=== PATIENT | male | born 1945 | race Caucasian/White ===

== ENCOUNTER 2019-05-05 07:11 | Emergency (ER) | payer OTHER, SELFPAY ==
[2019-05-05 07:21] VITALS: BP 151/75; PULSE 64; RESP 16; TEMP 37.2; O2SAT 99
--- NOTE | 2019-05-05 07:36 | ED_ITS ---
HPI - Skin/Abscess/Foreign Bdy General Chief complaint: Skin/Abscess/Foreign Body Stated complaint: bee sting on nose,not getting better Time Seen by Provider: 05/05/19 07:15 Source: patient Mode of arrival: ambulatory Limitations: no limitations History of Present Illness HPI narrative: Patient presents emergency department complaining of swelling around his eyes after being stung on the nose by a bee yesterday. Patient states that he does not have any history of allergy of any kind to bees. He states he was stung once on the tip of his nose and noticed some swelling shortly thereafter. He called his doctor's office, and was told that he should apply ice to the area, and that the swelling would go away on its own in a few days. The patient did not have any other issues, and went to bed without incident. However, when he woke up this morning, he noticed that he was quite puffy around his eyes, and decided to get this checked out. Patient denies any swelling anywhere else. No tightness in his throat or enlargement of his tongue. Patient denies any rash. No history of anaphylaxis to anything. No other complaints at this time. Related Data Home Medications Medication Instructions Recorded Confirmed Fluoxetine Hydrochloride (Prozac) 0 PO * [place] DOSE/FREQUENCY #0 03/26/08 Pravastatin Sodium (Pravachol) 0 PO * [place] DOSE/FREQUENCY #0 03/26/08 Review of Systems Constitutional Denies chills, Denies fever(s), Denies lethargy and Denies weakness Eyes Denies change in vision, Denies eye discharge, Denies irritation and Denies loss of vision ENT Ears, Nose, Mouth, and Throat: Denies change in voice, Denies neck pain and Denies sore throat Comments: Facial swelling Cardiovascular Denies chest pain, Denies irregular heart rhythm, Denies lightheadedness, Denies palpitations, Denies dyspnea, Denies dyspnea on exertion and Denies orthopnea Respiratory Denies cough, Denies dyspnea, Denies dyspnea on exertion and Denies wheezing Gastrointestinal Gastrointestinal: Denies abdominal pain, Denies change in bowel habits, Denies diarrhea, Denies nausea and Denies vomiting Genitourinary Denies hematuria, Denies flank pain, Denies urinary incontinence and Denies urinary urgency Musculoskeletal Denies neck pain Integumentary/Breasts Denies pruritus, Denies erythema, Denies rash and Denies wounds Neurologic Denies confusion, Denies loss of vision and Denies weakness Psychiatric Denies anxiety, Denies confusion, Denies depression, Denies homicidal ideation and Denies suicidal ideation Endocrine Denies palpitations Hematologic/Lymphatic Denies easy bruising Allergic/Immunologic Denies wheezing [facility] Medical History Hyperlipidemia (Acute) Surgical History No pertinent past surgical history (Acute) Social History Smoking Status: Never smoker Exam Initial Vital Signs Initial Vital Signs: Vital Signs Temperature 99 F 05/05/19 07:21 Pulse Rate 64 05/05/19 07:21 Respiratory Rate 16 05/05/19 07:21 Blood Pressure 151/75 H 05/05/19 07:21 Pulse Oximetry 99 05/05/19 07:21 Const General: cooperative and well developed Nutritional Appearance: well nourished Orientation: alert, awake, oriented x3 and not confused HENMT Head: normocephalic, atraumatic and other (Mild edema of nose and moderate periorbital edema. No erythema/induration) Ears: external ears normal Nose: No nasal discharge and other Face and sinus: sinuses nontender, face symmetric and No dry mucous membranes Mouth: oral mucosae normal and moist mucous membranes Teeth and gingiva: dentition normal Eyes General: appearance normal, both eyes and all related structures Eyelids: eyelids normal Conjunctivae: conjunctivae normal Sclera: sclerae normal Pupils: PERRL EOM: EOM intact bilaterally Neck Neck: normal visual inspection, trachea midline, No lymphadenopathy, No midline deformity and No JVD Lymphatic: No lymphedema Chest Chest: normal inspection of the chest Resp Effort & Inspection: normal respiratory effort, able to speak in complete sentences, no respiratory distress and no use of accessory muscles GI Auscultation: bowels sounds not normal Back/Spine/Pelvis Cervical Spine: cervical ROM normal Skin General: no rashes or lesions noted, No jaundice and No petechiae Neuro General: alert, oriented x3, gait normal and no focal motor deficits Speech: speech normal Extrem General: full ROM Psych Appearance: well kempt Mental Status: mental status grossly normal Attitude: cooperative Thought Content: normal and suicidality Judgment: judgment good Course Course Narrative: I discussed with the patient that most likely, the swelling around his eyes is due to tracking of the edema fluid from his nose into more dependent regions during the night while he has been supine position. I have discussed with him that given the timeline, as well as the lack of edema of his or pharyngeal structures, that this does not indicate anaphylaxis or progression of the reaction. We have discussed symptomatic management, including using cold packs around the eyes and nose, and as needed Benadryl. We have discussed the usual indications for return. Vital Signs - 8 hr 05/05/19 07:21 Temperature 99 F Pulse Rate 64 Respiratory Rate 16 Blood Pressure 151/75 H Pulse Oximetry 99 MDM - Skin/Abscess/Foreign Bdy Medical Records Attestation: I reviewed the patient's medical records. Discharge Plan Departure Patient Disposition: Home Clinical Impression: Bee sting reaction Qualifiers: Encounter type: initial encounter Injury intent: accidental or unintentional Qualified Code(s): T63.441A - Toxic effect of venom of bees, accidental (unintentional), initial encounter Discharge Date/Time: 05/05/19 07:40 Instructions: DI for Insect Bites and Stings Activity Restrictions/Additional Instructions: Please apply ice to the areas which are swollen. You may also use Benadryl 25- 50 mg every 6 hours, as needed for itching or swelling. Your reaction will most likely dissipate within the next couple of days. Prescriptions: No Action Fluoxetine Hydrochloride (Prozac) PO * [place] DOSE/FREQUENCY Qty: 0 RF: 0 Pravastatin Sodium (Pravachol) PO * [place] DOSE/FREQUENCY Qty: 0 RF: 0 Referrals: [facility] [Provider Group]
== END 2019-05-05 07:40 | disposition home or self-care (01) ==
PROVIDERS: Emergency Provider Emergency Medicine
DX: T63.441A Toxic effect of venom of bees, accidental (unintentional), initial encounter (principal)
CPT/HCPCS: 99282